=== PATIENT | female | born 1980 | race Caucasian/White ===

== ENCOUNTER 2016-08-27 13:58 | Emergency (ER) | payer SELFPAY ==
[~2016-08-27] VITALS: Ht 162.6 cm; Wt 110.0 kg
[~2016-08-27 13:58] MED LIST: BACTDS PO; DOCU-144 PO; FERR325C PO; IBUP-1542 PO
[2016-08-27 14:00] VITALS: Ht 162.6 cm; Wt 110.0 kg
[2016-08-27] MEDS ORDERED: ELIM TOP (14:37)
--- NOTE | 2016-08-27 15:16 | ERA ---
ER Documentation Chief Complaint Date/Time DATE: 08/27/16 TIME: 15:08 Chief Complaint INTERMITTENT HIVES X 2 MOS HPI This is an overweight, otherwise healthy 35-year-old female presents to the emergency department with a chief complaint of itching 2 months. Patient states that the itching started in her hands and waistline and has now spread to her back flanks and thighs. Patient has not taken any medications or other measures to relieve the symptoms. Patient denies recent travel, contacts with similar symptoms, medications, recreational drug use, alcohol abuse, known family medical history, vaginal discharge, dysuria, foul odor, trauma or break in the skin. Vaccination status up-to-date. ROS All systems reviewed and are negative except as per history of present illness. Medications Home Meds Active Scripts Permethrin* (Elimite*) 5% Cr, 1 APPLIC TOP ONCE for 2 Days, #2 TUB Apply once today. Apply 1 more time in 2 weeks. Prov:SHAHIDA ESTRADA PA-C 08/27/16 Ibuprofen* (Motrin*) 600 Mg Tab, 600 MG PO Q6H Y for PAIN AND OR ELEVATED TEMP, #30 TAB Prov:KEVIN HINDS NP 10/10/15 Sulfamethoxazole-Trimethoprim* (Bactrim* DS) 800-160 Mg Tab, 1 TAB PO BID for 10 Days, TAB Prov:KEVIN HINDS NP 10/10/15 Docusate Sodium* (Colace*) 100 Mg Capsule, 100 MG PO DAILY, #30 CAP Prov:GABRIEL LUNA NP 06/16/15 Ferrous Sulfate (Iron) 325 Mg Capsr, 325 MG PO TID for 30 Days Prov:GABRIEL LUNA NP 06/16/15 Allergies Allergies: Coded Allergies: acetaminophen (Verified Allergy, Intermediate, VOMITING, LIGHT HEADED, 12/19) hydrocodone (Verified Allergy, Intermediate, VOMITING, LIGHT HEADED, ) Uncoded Allergies: GENERALIZED ANESTHESIA (Allergy, Intermediate, VOMITING, LIGHT HEADED, 08/15) PMhx/Soc History of Surgery: Yes (devang knee sx,gall bladder removal,tubal ligation) Anesthesia Reaction: Yes (n/v for 4 days after surgeries) Hx Neurological Disorder: No Hx Respiratory Disorders: No Hx Cardiac Disorders: No Hx Psychiatric Problems: No Hx Miscellaneous Medical Probl: No Hx Alcohol Use: Yes (occasional) Hx Substance Use: No Hx Tobacco Use: No Physical Exam Vitals Vital Signs Date Time Temp Pulse Resp B/P Pulse Ox O2 Delivery O2 Flow Rate FiO2 08/27/16 14:00 98.2 89 20 124/85 99 Physical Exam Const: Overweight 35-year-old female Head: Atraumatic Eyes: Normal Conjunctiva ENT: Normal External Ears, Nose and Mouth. Neck: Full range of motion..~ No meningismus. Resp: Clear to auscultation bilaterally Cardio: Regular rate and rhythm, no murmurs Abd: Soft, non tender, non distended. Normal bowel sounds Skin: Track hanley visualized on the finger webs bilaterally most consistent with scabies. Patient has multiple other bites: 5 cm round macular red/purple area on the left mid axillary line -Adson's line. 4-6 cm round purple area on the lateral left thigh midway between the patella and ischial spine. Multiple small areas that are described as pruritic on the back that are red and nonraised. Hands have 5 small papular 1-2 mm lesions on the dorsal side of the hands bilaterally. Back: No midline or flank tenderness Ext: No cyanosis, or edema Neur: Awake and alert Psych: Normal Mood and Affect Procedures/MDM Patient is an overweight 35-year-old female who denies living with anyone, sexual contacts and has a chief complaint of rash. Her rash is most consistent with scabies versus pediculosis versus dermatitis herpetiformis versus other insect bites. Patient will be discharged for permethrin due to history of pruritic lesions that are tracking in the finger webs. At this time I have little suspicion for any bacterial or fungal involvement. Patient has been advised to consider [id number] hydrocortisone ointment for pruritic relief but at this time denies any pruritus medications. Patient's vitals are stable and her current condition is appropriate for discharge. Patient will be discharged with discharge instructions return precautions. Departure Diagnosis: Primary Impression: Scabies Additional Impressions: Pediculosis Bed bug bite Qualified Code: W57.XXXA - Bed bug bite, initial encounter Condition: Stable Patient Instructions: Scabies, Bedbug Bites Referrals: [facility] Usted se snell hecho un examen mdico de control que le indica que no est en shyam condicin que requiera tratamiento urgente en el Departamento de Emergencia. Un estudio ms profundo y el tratamiento de feng condicin pueden esperar sin ningn riesgo hasta que usted sea atendida/o en el consultorio de feng mdico o shyam cl jaz. Es responsabilidad suya arreglar shyam kel para el seguimiento del sandro. MANEJO DE CONDICIONES NO URGENTES EN EL FUTURO 1) Si usted tiene un mdico de atencin primaria: Usted debera llamar a feng mdico de atencin primaria antes de venir al departamento de emergencia. Despus de las horas de consultorio, feng doctor o feng asociado/a est disponible por telfono. El mdico o enfermero de addison en el servicio telefnico puede asesorarle por kelli medio para atender el problema, o sandro contrario se puede programar shyam kel. 2) Si usted no tiene un mdico de atencin primaria: Llame al mdico o clnica de referencia que aparece abajo kayy las horas de consultorio para hacer shyam kel para que le vean. CLINICAS: [facility] [phone] [address] [facility] [phone] [facility] [phone] [address] [facility] [facility] [phone] [address] [facility]. [facility] [phone] [address] [facility]. [phone] [address] [facility]. [facility] YOU HAVE RECEIVED A MEDICAL SCREENING EXAM AND THE RESULTS INDICATE THAT YOU DO NOT HAVE A CONDITION THAT REQUIRES URGENT TREATMENT IN THE EMERGENCY DEPARTMENT. FURTHER EVALUATION AND TREATMENT OF YOUR CONDITION CAN WAIT UNTIL YOU ARE SEEN IN YOUR DOCTORS OFFICE WITHIN THE NEXT 1-2 DAYS. IT IS YOUR RESPONSIBILITY TO MAKE AN APPOINTMENT FOR FOLOW-UP CARE. IF YOU HAVE A PRIMARY DOCTOR --you should call your primary doctor and schedule an appointment IF YOU DO NOT HAVE A PRIMARY DOCTOR YOU CAN CALL OUR PHYSICIAN REFERRAL HOTLINE AT IF YOU CAN NOT AFFORD TO SEE A PHYSICIAN YOU CAN CHOSE FROM THE FOLLOWING [facility] [address] [facility] [address] [facility] [address] [facility] [address] [facility]. [facility] [address] [facility]. [facility]. [address] Additional Instructions: Follow up with your PCP within the next 1-3 days for a more thorough evaluation and a possible referral to a specialist. Use [id number] hydrocortisone screen as discussed. Return the the emergency department immediately if symptoms worsen or change. If you have any questions regarding medications, ask your pharmacist or us before you leave. If any adverse reactions occur while taking your medications, discontinue the treatment and return to the emergency department immediately. Take your medications as directed, and complete the entire course of treatment. SHAHIDA ESTRADA PA-C Aug 27, 2016 15:16
== END 2016-08-27 14:35 | disposition home or self-care (01) ==
LOC: FTE 13:58 → E/R 14:35
DX: B86 Scabies (principal); B85.2 Pediculosis, unspecified; S60.562A Insect bite (nonvenomous) of left hand, initial encounter; S60.561A Insect bite (nonvenomous) of right hand, initial encounter; S70.362A Insect bite (nonvenomous), left thigh, initial encounter; S40.862A Insect bite (nonvenomous) of left upper arm, initial encounter; W57.XXXA Bitten or stung by nonvenomous insect and other nonvenomous arthropods, initial encounter; Y92.9 Unspecified place or not applicable
CPT/HCPCS: 99283

== ENCOUNTER 2016-12-28 14:09 | Emergency (ER) | payer MEDICAID ==
[~2016-12-28] VITALS: Ht 172.7 cm; Wt 104.5 kg
[~2016-12-28 14:09] MED LIST changes: +ELIM TOP
[2016-12-28 14:38] VITALS: Ht 172.7 cm; Wt 104.5 kg
[2016-12-28] MEDS ORDERED: DEXAMETHASONE 10 MG/ML 1 ML INJ IM ONE (15:30)
[2016-12-28] MEDS ORDERED: KETOROLAC 30 MG INJ IM STA (15:30)
[2016-12-28 15:40] LABS: URINE BLOOD (Dip) POC Negative (NEGATIVE)
[2016-12-28] MEDS ORDERED: NAPR-260 PO (16:13)
[2016-12-28] MEDS ORDERED: CIPR500T4 PO (16:13)
--- NOTE | 2016-12-28 18:24 | ERD ---
ER Documentation Chief Complaint Chief Complaint left lower back pain since am, vag bleeding HPI Patient is a 36-year-old female presenting to the emergency department with complaints of left lower back pain with radiation down her left leg ongoing intermittently for the past week. Additionally the patient noticed one episode of bleeding from the genital area this morning. She states she was unsure whether was vaginal or from her urethra, however she only noticed it after she wiped. She did put one tampon and but has not had to change it all day. Last menstrual cycle was December 11, 2016. She does have history of tubal ligation. Her back pain is bilateral, worse on the left, constant. She denies fevers, chills, nausea, vomiting, diarrhea, or other symptoms at this time. ROS All systems reviewed and are negative except as per history of present illness. Medications Home Meds Active Scripts Naproxen* (Naprosyn*) 500 Mg Tablet, 500 MG PO BID Y for PAIN AND/OR INFLAMMATION, #20 TAB Prov:KASIA BEDOLLA PA-C 12/28/16 Ciprofloxacin Hcl* (Ciprofloxacin Hcl*) 500 Mg Tablet, 500 MG PO BID for 7 Days , #14 TAB Prov:KASIA BEDOLLA PA-C 12/28/16 Permethrin* (Elimite*) 5% Cr, 1 APPLIC TOP ONCE for 2 Days, #2 TUB Apply once today. Apply 1 more time in 2 weeks. Prov:SHAHIDA ESTRADA PA-C 08/27/16 Ibuprofen* (Motrin*) 600 Mg Tab, 600 MG PO Q6H Y for PAIN AND OR ELEVATED TEMP, #30 TAB Prov:KEVIN HINDS NP 10/10/15 Sulfamethoxazole-Trimethoprim* (Bactrim* DS) 800-160 Mg Tab, 1 TAB PO BID for 10 Days, TAB Prov:KEVIN HINDS NP 10/10/15 Docusate Sodium* (Colace*) 100 Mg Capsule, 100 MG PO DAILY, #30 CAP Prov:GABRIEL LUNA NP 06/16/15 Ferrous Sulfate (Iron) 325 Mg Capsr, 325 MG PO TID for 30 Days Prov:GABRIEL LUNA NP 06/16/15 Allergies Allergies: Coded Allergies: acetaminophen (Verified Allergy, Intermediate, VOMITING, LIGHT HEADED, 12/19) hydrocodone (Verified Allergy, Intermediate, VOMITING, LIGHT HEADED, ) Uncoded Allergies: GENERALIZED ANESTHESIA (Allergy, Intermediate, VOMITING, LIGHT HEADED, 08/15) PMhx/Soc History of Surgery: Yes (devang knee sx,gall bladder removal,tubal ligation) Anesthesia Reaction: Yes (n/v for 4 days after surgeries) Hx Neurological Disorder: No Hx Respiratory Disorders: No Hx Cardiac Disorders: No Hx Psychiatric Problems: No Hx Miscellaneous Medical Probl: No Hx Alcohol Use: Yes (occasional) Hx Substance Use: No Hx Tobacco Use: No Smoking Status: Never smoker Physical Exam Vitals Vital Signs Date Time Temp Pulse Resp B/P Pulse Ox O2 Delivery O2 Flow Rate FiO2 12/28/16 14:38 99.1 101 18 124/71 98 Physical Exam Const: Nontoxic, well-appearing female in no acute distress. Head: Atraumatic Eyes: Normal Conjunctiva ENT: Normal External Ears, Nose and Mouth. Neck: Full range of motion..~ No meningismus. Resp: Clear to auscultation bilaterally Cardio: Regular rate and rhythm, no murmurs Abd: Soft, non tender, non distended. Normal bowel sounds Skin: No petechiae or rashes Back: No midline or flank tenderness. There is left-sided low back tenderness to palpation. Straight leg raise test present on the left. Ext: No cyanosis, or edema Neur: Awake and alert Psych: Normal Mood and Affect Results 24 hrs Laboratory Tests Test 12/28/16 15:40 Bedside Urine pH (LAB) 5.5 Bedside Urine Protein (LAB) 1+ Bedside Urine Glucose (UA) Negative Bedside Urine Ketones (LAB) 1+ Bedside Urine Blood Negative Bedside Urine Nitrite (LAB) Negative Bedside Urine Leukocyte Esterase (L Trace Current Medications Medications (Trade) Dose Ordered Sig/Susan Route PRN Reason Start Time Stop Time Status Last Admin Dose Admin Ketorolac Tromethamine (Toradol) 30 mg ONCE STAT IM 12/28/16 15:30 12/28/16 15:31 DC 12/28/16 15:47 Dexamethasone (Decadron) 10 mg ONCE ONCE IM 12/28/16 15:30 12/28/16 15:31 DC 12/28/16 15:46 Procedures/MDM 36-year-old female presenting to the emergency department with sciatica and one episode of hematuria today. Urine dip in the department was concerning for mild urinary tract infection with possible early uncomplicated pyelonephritis. There is no hematuria noted. Patient states she noticed no more bleeding from the genital area in the department. Patient stable for outpatient management with a prescription for Cipro and naproxen. The patient was treated in the department Toradol and Decadron for her sciatica and she was improved prior to discharge. Urine was negative. No evidence to suggest life- threatening illness at time of discharge. The patient agreed with the discharge plan a diagnosis. She was advised to return immediately for any new or worsening symptoms. She is to follow-up with her primary care physician in the next 1-2 days. Departure Diagnosis: Primary Impression: Urinary tract infection Urinary tract infection type: site unspecified Hematuria presence: without hematuria Qualified Code: N39.0 - Urinary tract infection without hematuria, site unspecified Additional Impression: Back pain Back pain location: low back pain Chronicity: unspecified Back pain laterality: unspecified Sciatica presence: with sciatica Sciatica laterality : sciatica of left side Qualified Code: M54.42 - Low back pain with left- sided sciatica, unspecified back pain laterality, unspecified chronicity Condition: Fair Patient Instructions: Understanding Urinary Tract Infections (UTIs), Back Pain W/ Sciatica Referrals: [facility] YOU HAVE RECEIVED A MEDICAL SCREENING EXAM AND THE RESULTS INDICATE THAT YOU DO NOT HAVE A CONDITION THAT REQUIRES URGENT TREATMENT IN THE EMERGENCY DEPARTMENT. FURTHER EVALUATION AND TREATMENT OF YOUR CONDITION CAN WAIT UNTIL YOU ARE SEEN IN YOUR DOCTORS OFFICE WITHIN THE NEXT 1-2 DAYS. IT IS YOUR RESPONSIBILITY TO MAKE AN APPOINTMENT FOR FOLOW-UP CARE. IF YOU HAVE A PRIMARY DOCTOR --you should call your primary doctor and schedule an appointment IF YOU DO NOT HAVE A PRIMARY DOCTOR YOU CAN CALL OUR PHYSICIAN REFERRAL HOTLINE AT IF YOU CAN NOT AFFORD TO SEE A PHYSICIAN YOU CAN CHOSE FROM THE FOLLOWING [facility] [address] [facility] [address] [facility]. [facility] [address] [facility] [address] [facility] [address] [facility]. [facility] [address] Additional Instructions: Follow up with your PCP within the next 1-3 days for a repeat evaluation. If you require a referral to a specialist, your Primary Care Provider may be able to provide this for you. In most patient cases, a referral is not required. If you have further questions regarding this matter, please ask your Primary Care Provider. Return the the emergency department immediately if symptoms worsen or change. If you have any questions regarding medications, ask your pharmacist or us before you leave. If any adverse reactions, occur while taking your medications, discontinue the treatment and return to the emergency department immediately. If any new or worsening symptoms, uncontrolled fevers, or other unexplained symptoms occur, return to the emergency department immediately. Take your medications as directed, and complete the entire course of treatment. KASIA BEDOLLA PA-C Dec 28, 2016 18:24
== END 2016-12-28 16:22 | disposition home or self-care (01) ==
LOC: FTE 14:09
DX: N39.0 Urinary tract infection, site not specified (principal); M54.42 Lumbago with sciatica, left side
CPT/HCPCS: 81003; 96372; J1100; J1885; Z7502